=== PATIENT | male | born 1975 | race Caucasian/White ===

== ENCOUNTER 2017-11-16 13:46 | Emergency (ER) | payer OTHER ==
--- NOTE | 2017-11-16 18:37 | UC ---
Back Pain HPI - HPI Summary HPI Summary: 42 y/o male presents to the urgent care c/o lower back pain after shoveling food for the cow 2 days ago. Pain is 7/10 sharp at times specially getting up and radiating to the left hip. This morning when he woke up he had a sudden pain shooting down his Left lower leg and it ws difficult to get out of his bed. His had to help him.Now pain is better 7/10. Pt denies saddle anesthesia, urinary or fecal incontinence, urinary symptoms, numbness or tingling over the lower extremities. He has been taking Motrin PO 400mg PO w/o any relief. - History of Current Complaint Chief Complaint: UCBackPain Stated Complaint: LOWER BACK PAIN Time Seen by Provider: 11/16/17 18:36 Hx Obtained From: Patient Onset/Duration: Sudden Onset, Lasting Days - 2 days, Worse Since - today Timing: Constant Severity Initially: Moderate Severity Currently: Moderate Pain Intensity: 8 Pain Scale Used: 0-10 Numeric Back Pain: Is Discrete @ - lower back, Radiates To - left side of hip Character: Sharp, Spasmodic Aggravating Factor(s): Movement, Lifting, Bending Alleviating Factor(s): Rest Associated Signs And Symptoms: Positive: Negative. Negative: Bruising, Weakness , Numbness, Tingling, Flank Pain, Bladder Incontinence, Bowel Incontinence, Pain with Weight Bearing - Risk Factors AAA Risk Factors: Negative TAD Risk Factors: Negative Cauda Equina Risk Factors: Negative Epidural Abscess Risk Factors: Negative - Allergies/Home Medications Allergies/Adverse Reactions: Allergies Allergy/AdvReac Type Severity Reaction Status Date / Time No Known Allergies Allergy Verified 11/16/17 18:25 PMH/Surg Hx/FS Hx/Imm Hx Previously Healthy: Yes - Pt denies PMHX - Surgical History Surgical History: None - Family History Known Family History: Positive: Diabetes - Social History Occupation: Employed Full-time Lives: With Family Alcohol Use: None Substance Use Type: None Smoking Status (MU): Light Every Day Tobacco Smoker Review of Systems Constitutional: Negative Skin: Negative Eyes: Negative ENT: Negative Respiratory: Negative Cardiovascular: Negative Gastrointestinal: Negative Genitourinary: Negative Motor: Negative Neurovascular: Negative Musculoskeletal: Decreased ROM - lower back, Other: - acute lower back pain Neurological: Negative Psychological: Negative Is Patient Immunocompromised?: No All Other Systems Reviewed And Are Negative: Yes Physical Exam Triage Information Reviewed: Yes Vital Signs: Initial Vital Signs Temp 97.4 F 11/16/17 18:22 Pulse 66 11/16/17 18:22 Resp 14 11/16/17 18:22 BP 116/88 11/16/17 18:22 Pulse Ox 97 11/16/17 18:22 - Additional Comments Appearance: Well-Appearing, Well-Nourished, tall male sitting in the examining table w/o any apparent distress. Vital Signs Reviewed: Yes Eyes: Positive: Conjunctiva Clear - PERRLA, EOMI. ENT: Positive: Normal ENT inspection, Hearing grossly normal, Pharynx normal, TMs normal, Uvula midline Neck: Positive: Supple, Nontender, No Lymphadenopathy Respiratory: Positive: Chest non-tender, Lungs clear, Normal breath sounds, No respiratory distress Cardiovascular: Positive: RRR, No Murmur, Pulses Normal, Brisk Capillary Refill Abdomen Description: Positive: Nontender, No Organomegaly, Soft. Negative: CVA Tenderness (R), CVA Tenderness (L) Bowel Sounds: Positive: Present Musculoskeletal: Positive: Strength Intact, Other: - BACK: Patient walked into the urgent care room with symmetric ambulation, No signs of limping, antalgic, able to bear weight. No signs of trauma, No masses palpated. Point tenderness at the level of L5-S1, No CVAT, no flank ecchymosis . No sacroiliac notch tenderness, No saddle anesthesia.ROM: limited due to pain, Straight Leg Raise: negative. Patellar reflexes: brisk, symmetric Muscle strength lower extremities. Dorsiflexion/ plantar flexion of ankles. Heel/ toe walk. Lower extremities: Femoral, popliteal, posterior tibial, and dorsalis pedis pulses WNL. Pt refuse rectal exam Neurological: Positive: Alert, Muscle Tone Normal Psychological Exam: Normal Skin Exam: Normal Back Pain Course/Dx - Course Course Of Treatment: 42 y/o male presents to the urgent care c/o lower back pain after shoveling food for the cow 2 days ago. Pain is 7/10 sharp at times specially getting up and radiating to the left hip. This morning when he woke up he had a sudden pain shooting down his Left lower leg and it ws difficult to get out of his bed. His had to help him.Now pain is better 7/10. Pt denies saddle anesthesia, urinary or fecal incontinence, urinary symptoms, numbness or tingling over the lower extremities. He has been taking Motrin PO 400mg PO w/o any relief. Hx obtained.PE: Point tenderness at the level of the L5-S1 and left paraspinal muscle spasm at the same level on examination. test ordered : negative. Lumbosacral X-ray ordered, Impression: Streghtening of lumbar lordosis, mild degenerative disc disease and osteoarthritis.. Naproxen PO ordered at the clinic. Given by nurse. Pt tolerated well medication pain decrease. Pt Rx Naproxen PO, flexeril PO and given a PT referral. Patient was instructed to the f/u [facility] in 1 week if symptoms do not improve or worsen. Patient understands and agrees. Patient is able to ambulate freely w/o aid or limp. Plan of care was discussed with the patient and patient understands and agrees. All questions were answered at patient satisfaction. Pt left clinic hemodynamically stable. - Differential Dx/Diagnosis Differential Diagnosis/HQI/PQRI: Cauda Equina Syndrome, Herniated Disc, Renal Colic, Strain, Sprain Provider Diagnoses: 1- Acute lower back pain s/p injury. 2-Degenerative disc disease. 3-Muscle spasm Discharge - Discharge Plan Condition: Stable Disposition: HOME Prescriptions: Cyclobenzaprine TAB* [Flexeril 10 MG TAB*] 10 mg PO TID PRN #15 tab PRN Reason: Spasms - Back methylPREDNISolone [Medrol Dosepak 4 MG*] 4 mg PO .SEE [employer] #1 alfred Naproxen [Naproxen 500 mg] 500 mg PO Q8H PRN #30 tab PRN Reason: Pain Patient Education Materials: Acute Low Back Pain (ED), Muscle Spasm (ED), Degenerative Disc Disease (ED) Referrals: Martha Glass MD [Primary Care Provider] - 1 Week Sarah Decker MD [Medical Doctor] - 1 Week Additional Instructions: 1- Please take Naproxen PO as directed after meals for pain. 2- Take Flexeril PO as directed for muscle spasm. Please do not drive while taking the medication. 3- Wear a back support. Avoid strenuous exercise of heavy lifting. 4- Please follow up with Orthopedic Dr Decker or your PCP in 1 week if not improvement of symptoms, for further management.
[2017-11-16] MEDS ORDERED: Naproxen TAB* 250 MG PO ONE (18:46)
--- NOTE | 2017-11-16 19:15 | RAD ---
HISTORY: Acute lower back pain COMPARISONS: None VIEWS: 5 , Frontal, lateral, coned-down lateral sacral, and bilateral oblique views of the lumbar spine. FINDINGS: ALIGNMENT: There is straightening of the normal lumbar lordosis. VERTEBRAL BODIES: The vertebral body heights are normal. The interpedicular distances are normal. JOINTS: There is mild facet osteoarthritis. INTERVERTEBRAL DISCS: There is mild diffuse loss of intervertebral disc height. SOFT TISSUE: Unremarkable. OTHER: The pelvis is unremarkable. The lung bases are clear. IMPRESSION: STRAIGHTENING OF THE LUMBAR LORDOSIS. MILD DEGENERATIVE DISC DISEASE AND OSTEOARTHRITIS.
== END 2017-11-16 19:33 | disposition home or self-care (01) ==
LOC: UCCORT 13:46
DX: M54.5 Low back pain (principal); M62.830 Muscle spasm of back; M51.37 Other intervertebral disc degeneration, lumbosacral region; M47.817 Spondylosis without myelopathy or radiculopathy, lumbosacral region; F17.200 Nicotine dependence, unspecified, uncomplicated
CPT/HCPCS: 72110; 99202; A9270-GY; G0463